=== PATIENT | female | born 1995 ===

== ENCOUNTER 2016-10-23 00:20 | Emergency (ER) | payer SELFPAY ==
[2016-10-23 01:05] VITALS: BMI 34.7
[2016-10-23 01:37] LABS: RBC URINE 9 /hpf (0-3); URINE BACTERIA OCC (<OCC); URINE BILIRUBIN NEGATIVE (NEGATIVE); URINE BLOOD MODERATE (NEGATIVE); URINE COLOR AMBER (YELLOW); URINE GLUCOSE (UA) NEG (Normal); URINE KETONE NEGATIVE (NEGATIVE); URINE LEUKOCYTE ESTERASE TRACE Leu/uL (Negative); URINE PROTEIN 30 mg/dL (NEGATIVE); URINE UROBILINOGEN 0.2-1.0 mg/dL (0.2-1.0); WBC URINE 6 /hpf (0-5)
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
== END 2016-10-23 02:15 | disposition home or self-care (01) ==
LOC: H.EROB2 00:20
DX: O26.93 Pregnancy related conditions, unspecified, third trimester (principal); R10.2 Pelvic and perineal pain; R89.8 Other abnormal findings in specimens from other organs, systems and tissues; Z3A.28 28 weeks gestation of pregnancy; O09.213 Supervision of pregnancy with history of pre-term labor, third trimester

== ENCOUNTER 2017-02-13 04:09 | Emergency (ER) | payer MEDICAID ==
[2017-02-13 04:09] VITALS: BMI 32.5
[2017-02-13 04:40] VITALS: BP 132/79; PULSE 83; RESP 18; TEMP 97.9; O2SAT 100
--- NOTE | 2017-02-13 05:25 | ED PDOC ---
HPI: Dental Pain/Injury Time Seen by Provider: 02/13/17 04:40 Chief Complaint (Nursing): Dental Pain Chief Complaint (Provider): toothache History Per: Patient History/Exam Limitations: no limitations Onset/Duration Of Symptoms: Hrs Current Symptoms Are (Timing): Still Present Additional History Per: Patient Additional Complaint(s): 21 y/o female presents with left lower toothache x 12 hours. Patient states she had left lower molar removed, was advised to take ibuprofen, last dose 15: 00 but patient states it did not help with pain. Denies fever, nausea/vomiting , facial pain/swelling, difficulty speaking/swallowing. Past Medical History Reviewed: Historical Data, Nursing Documentation, Vital Signs Vital Signs: Last Vital Signs Temp 97.9 F 02/13/17 04:31 Pulse 83 02/13/17 04:31 Resp 18 02/13/17 04:31 BP 132/79 02/13/17 04:31 Pulse Ox 100 02/13/17 04:31 - Medical History PMH: No Chronic Diseases Denies: Depression, Diabetes, HTN (Only Gestational HTN) - Surgical History Surgical History: No Surg Hx - Family History Family History: States: Unknown Family Hx - Immunization History Hx Tetanus Toxoid Vaccination: No Hx Influenza Vaccination: No Hx Pneumococcal Vaccination: No - Home Medications Home Medications: Ambulatory Orders Medication Instructions Recorded Multivit/Folic Acid/I 1 tab PO DAILY 07/01/16 [] Acetaminophen [Tylenol 325mg tab] 650 mg PO Q6 PRN tab 01/10/17 Ibuprofen [Motrin Tab] 600 mg PO Q6 PRN tab 01/10/17 - Allergies Allergies/Adverse Reactions: Allergies Allergy/AdvReac Type Severity Reaction Status Date / Time No Known Allergies Allergy Verified 02/13/17 04:31 Review of Systems ROS Statement: Except As Marked, All Systems Reviewed And Found Negative ENT: Positive for: Mouth Pain (left lower tooth) Physical Exam - Reviewed Nursing Documentation Reviewed: Yes Vital Signs Reviewed: Yes - Physical Exam Appears: Positive for: Well, Non-toxic, No Acute Distress Head Exam: Positive for: ATRAUMATIC, NORMAL INSPECTION, NORMOCEPHALIC ENT: Positive for: Normal ENT Inspection, Other (left lower 2nd molar removed with residual ginival tenderness; no active gingival bleeding, abscess, or swelling noted. ) Cardiovascular/Chest: Positive for: Regular Rate, Rhythm Respiratory: Positive for: Normal Breath Sounds - ECG O2 Sat by Pulse Oximetry: 100 - Progress ED Course And Treament: Patient given Toradol IM Advised to continue ibuprofen Q6. Follow up with Dentist in 2 days. Return to ED for worsening/concerning symptoms. Disposition - Clinical Impression Clinical Impression: Mouth pain - Patient ED Disposition Is Patient to be Admitted: No Counseled Patient/Family Regarding: Diagnosis, Need For Followup - Disposition Disposition: Routine/Home Disposition Time: 05:26 Condition: IMPROVED Instructions: Toothache (ED) Print Language: CYMRAES
== END 2017-02-13 06:00 | disposition home or self-care (01) ==
LOC: H.ER 04:09
DX: K08.89 Other specified disorders of teeth and supporting structures (principal)
CPT/HCPCS: 81025; 96372; 99282; J1885